=== PATIENT | male | born 1965 | race Caucasian/White ===

== ENCOUNTER 2025-02-17 10:36 | Outpatient (CLI) | payer MEDICAID ==
[~2025-02-17 10:36] MED LIST: ALBU18HF2 INH; ALLO100T PO; APIX5TAB3 PO; ASPI-10 PO; ATOR10TA PO; BUDE10.2 INH; COLC0.6T72 PO; FURO20TA4 PO; GABA300C PO; HYDR-3965 PO; LOP12.5T PO; POTA-206 PO; TAMS-55 PO; TIOT4MIS2 INH; VITA1CAP PO; Vitamin C PO
[2025-02-17 12:12] LABS: CREATININE 0.91 MG/DL (0.60-1.10); TOTAL CARBON DIOXIDE 27.4 MMOL/L (24-32); eGFR 85 ML/MIN
== END 2025-02-17 23:59 | disposition home or self-care (01) ==
LOC: RAD 10:36
PROVIDERS: ATTEND Thoracic Surgery (Cardiothoracic Vascular Surgery)
DX: I25.10 Atherosclerotic heart disease of native coronary artery without angina pectoris (principal); Z13.220 Encounter for screening for lipoid disorders
CPT/HCPCS: 36415; 80048

== ENCOUNTER 2025-03-04 15:49 | Emergency (ER) | payer MEDICAID ==
[~2025-03-04] VITALS: Ht 182.9 cm; Wt 127.3 kg
[2025-03-04 15:58] VITALS: TEMP 98.6
--- NOTE | 2025-03-04 16:13 | ELECTROCARDIOGRAPH REPORT ---
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
[2025-03-04 16:31] LABS: MEAN PLATELET VOLUME 8.7 FL (7.4-10.4); RED CELL DISTRIBUTION WIDTH 14.3 % (11.5-14.5)
[2025-03-04 16:40] LABS: CREATININE 0.74 MG/DL (0.60-1.10); TOTAL CARBON DIOXIDE 28.9 MMOL/L (24-32); eCRCL 118 ML/MIN; eGFR > 90 ML/MIN
--- NOTE | 2025-03-04 17:38 | Physician Documentation ---
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 He was recently diagnosed with a DVT of the LLE and is already on a DOAC. He denies fever, N/V/D. He was instructed to be seen in our ER today for concern that the leg is infected. He reports pain to the leg. Tetanus witin 5 years: No Medication Reconciliation Allergies: Coded Allergies: No Known Allergies (Unverified , 01/28/25) Scheduled Allopurinol* (Allopurinol*), 2 TAB PO DAILY, (Reported) Apixaban (Eliquis), 1 TAB PO BID, (Reported) Aspirin (Aspirin), 1 TAB PO DAILY, (Reported) Atorvastatin Calcium (Lipitor), 10 MG PO HS Budesonide/Formoterol Fumarate (Symbicort 160-4.5 Mcg Inhaler), 2 PUFFS INH Q12H, (Reported) Colchicine (Colchicine), 1 TAB PO DAILY, (Reported) Furosemide (Furosemide), 20 MG PO DAILY Gabapentin (Neurontin), 1 CAP PO Q8H, (Reported) Metoprolol Tartrate (Lopressor tablet), 12.5 MG PO Q12H Potassium Chloride (K-Dur), 10 MEQ PO DAILY Tamsulosin Hcl* (Flomax*), 1 CAP PO DAILY Tiotropium Sharon (Spiriva Respimat), 2 PUFFS INH DAILY, (Reported) Vitamin B Complex (Vitamin B Complex), 1 CAP PO DAILY, (Reported) [Vitamin C], PO DAILY, (Reported) Scheduled PRN Albuterol Sulfate (Ventolin Hfa), 2 PUFFS INH Q4HPRN PRN for wheezing, (Reported) Hydrocodone Bit/Acetaminophen 5/325 MG ([place] 5/325 MG), 1 TAB PO QID PRN for pain, (Reported) Past Medical History Smoking Status: Never smoker Review of Systems All Other Systems at this time: Reviewed and Negative Physical Exam Vital Signs: RN Vital Signs have been reviewed: Yes, Temperature: 98.6, Heart Rate: 92, Respiratory Rate: 22, BP: 149/81, Pulse Oximetry: 92, Weight: 127.270 Oxygen Flow Rate: 0 Physical Exam HEENT: PERRL, moist oral mucosa, EOMI Pulmonary: No respiratory distress Cardiac: RRR, no murmur, rub or gallop MSK: no deformity; trace pitting edema to RLE, 1-2+ pitting edema to LLE to knee Skin: w/d/i, no rash Neuro: alert, nonfocal Psych: normal affect Progress Results/Orders Results/Orders Orders - LAVERN RAMOS MD Culture Blood (03/04/25 16:02) Urinalysis, Cult If Indicated (03/04/25 16:02) Monitor (03/04/25 16:02) Saline Lock (03/04/25 16:02) Completed Orders - LAVERN RAMOS MD Cbc/Diff (03/04/25 16:02) Electrocardiogram (03/04/25 16:02) Procalcitonin (03/04/25 16:02) BMP (03/04/25 16:02) Lacticsepsis (03/04/25 16:02) Vital Signs 03/04/25 03/04/25 03/04/25 15:58 16:10 16:48 Temp 98.6 Pulse 96 92 Resp 18 18 22 B/P (MAP) 140/85 149/81 (103) Pulse Ox 95 92 O2 Flow Rate 0 Laboratory Tests Test 03/04/25 16:21 White Blood Count 7.1 Red Blood Count 3.88 L Hemoglobin 12.4 L Hematocrit 36.8 L Mean Corpuscular Volume 94.9 Mean Corpuscular Hemoglobin 32.0 H Mean Corpuscular Hemoglobin Concent 33.8 Red Cell Distribution Width 14.3 Platelet Count 249 Mean Platelet Volume 8.7 Neutrophils (%) (Auto) 70.3 Lymphocytes (%) (Auto) 17.5 L Monocytes (%) (Auto) 9.3 Eosinophils (%) (Auto) 2.1 Basophils (%) (Auto) 0.8 Neutrophils # (Auto) 5.0 Lymphocytes # (Auto) 1.2 Monocytes # (Auto) 0.7 Eosinophils # (Auto) 0.2 Basophils # (Auto) 0.1 CBC Comment Sodium Level 136 Potassium Level 3.2 L Chloride Level 100 Carbon Dioxide Level 28.9 Anion Gap 7 L Blood Urea Nitrogen 11 Creatinine 0.74 Estimated GFR/1.73 m2 > 90 BUN/Creatinine Ratio 14.9 Glucose Level 96 Lactic Acid Level 1.0 Calcium Level 8.7 Albumin 3.2 L Procalcitonin < 0.05 Chemistry Comments Medical Decision Making Findings 59 year old male with LLE swelling and pain. Labs were benign and I felt that, given the benign exam, preexisting DVT, and normal white blood cell count, that the patient likely does not have a LLE cellulitis and elected to discharge him with a refill of pain medications. Additional Comment Ddx = cellulitis, DVT, peripheral edema, chronic venous stasis dermatitis Departure Disposition: HOME / SELF CARE / HOMELESS Impression: Primary Impression: DVT (deep venous thrombosis) Condition: Stable Discharge Instructions: Deep Vein Thrombosis Referrals: NO PRIMARY CARE PROVIDER (PCP) Prescriptions Hydrocodone Bit/Acetaminophen 5/325 MG ([place] 5/325 MG) 5 Mg/325 Mg Tablet 1-2 TAB PO Q4-6 hours PRN for pain, #16 TAB Prov: LAVERN RAMOS MD 03/04/25 Education Educated: Patient Educated regarding: diagnosis, treatment, prognosis, need for follow up Signature Scribe Signature: . Attestation: . LAVERN RAMOS MD Mar 04, 2025 17:38
[2025-03-04] MEDS ORDERED: HYDR-3965 PO (17:42)
[2025-03-04 23:13] VITALS: BP 128/80; PULSE 100; RESP 16; O2SAT 99
== END 2025-03-05 00:41 | disposition home or self-care (01) ==
LOC: ER 15:50
DX: I82.402 Acute embolism and thrombosis of unspecified deep veins of left lower extremity (principal); Z79.899 Other long term (current) drug therapy; Z79.82 Long term (current) use of aspirin
CPT/HCPCS: 36415; 80048; 83605; 84145; 85025; 87040; 93005; 99284